=== PATIENT | male | born 1965 | race Caucasian/White ===

== ENCOUNTER 2022-06-16 03:44 | Inpatient (IN) | payer OTHER ==
[2022-06-16] VITALS (7 sets, daily range): BP systolic 105–125; BP diastolic 60–69
[~2022-06-16] VITALS: Ht 180.3 cm; Wt 88.5 kg
[2022-06-16] MEDS ORDERED: ONDANSETRON 4 MG/2 ML VIAL ONE (03:48)
--- NOTE | 2022-06-16 03:55 | NUR ---
BIB diabetes nurse from home with syncopal episode, patient is alert and oriented x4, pale in color, no s/s of respiratory distress. 1 liter of normal infusing from field, medicated as per order with 4mg of zofran IVat this time. MD at bedside for exam. patient informed of plan of care. Siderails up, will continue to monitor.
[2022-06-16] MEDS ORDERED: ASPIRIN 81 MG TAB.CHEW ONE (03:59)
[2022-06-16] MEDS ORDERED: ONDANSETRON 4 MG/2 ML VIAL IV ONE (04:00)
[2022-06-16] MEDS ORDERED: ASPIRIN 81 MG TAB.CHEW PO ONE (04:00)
[2022-06-16] MEDS ORDERED: IV NORMAL SALINE 1000 ML BAG IV ONE (04:00)
--- NOTE | 2022-06-16 04:10 | NUR ---
Xray at bedside.
[2022-06-16] MEDS ORDERED: ESCI5TAB PO (04:12)
[2022-06-16] MEDS ORDERED: ATOR80TA PO (04:12)
[2022-06-16] MEDS ORDERED: FAMO20TA8 PO (04:12)
[2022-06-16] MEDS ORDERED: FENO48TA6 PO (04:12)
[2022-06-16] MEDS ORDERED: TICA60TA PO (04:12)
[2022-06-16] MEDS ORDERED: ASPI81TA31 PO (04:12)
[2022-06-16] MEDS ORDERED: NITR0.4T SL (04:12)
[2022-06-16] MEDS ORDERED: NIAC500T2 PO (04:12)
[2022-06-16] MEDS ORDERED: ALBU8.5H8 IH (04:12)
[2022-06-16] MEDS ORDERED: ALEN70TA80 PO (04:12)
[2022-06-16] MEDS ORDERED: ZOLP10TA2 PO (04:12)
[2022-06-16 04:23] LABS: HEMATOCRIT 37.8 % (36.7-47.1); MEAN CORPUSCULAR HEMOGLOBIN 30.4 uug (23.8-33.4); MEAN CORPUSCULAR VOLUME 90.9 fL (73.0-96.2); PLATELET COUNT (AUTO) 229 K/uL (152-348)
[2022-06-16 04:29] LABS: CARBON DIOXIDE 28 mmol/L (21-32); CHLORIDE 104 mmol/L (98-107); CREATININE 1.1 mg/dL (0.6-1.3); GLUCOSE 129 mg/dL (74-106); POTASSIUM 3.1 mmol/L (3.5-5.1); UREA NITROGEN, BLOOD 11 mg/dL (7-18)
[2022-06-16 04:41] LABS: ALANINE AMINOTRANSFERASE 31 U/L (16-63); ALKALINE PHOSPHATASE 74 U/L (50-136); ASPARTATE AMINOTRANSFERASE 26 U/L (15-37); BILIRUBIN,DIRECT 0.3 mg/dL (0.0-0.2); BILIRUBIN,TOTAL 0.9 mg/dL (0.2-1.0); TOTAL PROTEIN, SERUM 7.2 g/dL (6.4-8.2)
[2022-06-16] MEDS ORDERED: POTASSIUM CHLORIDE 20 MEQ TAB.PRT.SR ONE (04:41)
[2022-06-16] MEDS ORDERED: POTASSIUM CHLORIDE 20 MEQ TAB.PRT.SR PO ONE (04:45)
[2022-06-16] MEDS ORDERED: NITROGLYCERIN 0.4 MG/TAB BOTTLE SL PRN (05:00)
[2022-06-16] MEDS ORDERED: ALBUTEROL SULFATE 8 GM HFA.AER.AD IH PRN (05:00)
[2022-06-16] MEDS ORDERED: ALENDRONATE SODIUM 70 MG TABLET PO SCH (05:00)
--- NOTE | 2022-06-16 05:02 | NUR ---
Family at bedside, aware patient getting admitted to the hospital, awaiting room assignment.
[2022-06-16] MEDS ORDERED: hydrALAZINE HCL 20 MG/1 ML VIAL IV PRN (05:15)
[2022-06-16] MEDS ORDERED: ACETAMINOPHEN 325 MG TABLET PO PRN (05:15)
[2022-06-16] MEDS ORDERED: MORPHINE SULFATE 2 MG/1 ML DISP.SYRIN IVP PRN (05:15)
[2022-06-16] MEDS ORDERED: IV NS 1000 ML 1,000 ML IV SCH (05:15)
[2022-06-16] MEDS ORDERED: ONDANSETRON 4 MG/2 ML VIAL IV PRN (05:15)
--- NOTE | 2022-06-16 06:04 | NUR ---
Patient ambulated to bathroom with and back to bed. IVF infusing as per order, no voiced c/o pain or discomfort.
--- NOTE | 2022-06-16 06:50 | NUR ---
Report given to accepting nurse Milly, patient remais stable for transport.
[2022-06-16] MEDS ORDERED: IV NS 1000 ML 1,000 ML IV PRN (08:26)
[2022-06-16] MEDS ORDERED: ALBUTEROL SULFATE 2.5 MG/3 ML NEBU NEB PRN (08:30)
[2022-06-16] MEDS ORDERED: HEPARIN SODIUM,PORCINE 5,000 UNITS/ML VIAL SQ SCH (09:00)
[2022-06-16] MEDS ORDERED: Medication Not On Formulary EA (Escitalopram Oxalate (Lexapro) 5 MG) PO SCH (09:00)
[2022-06-16] MEDS: ASPIRIN 81 MG TAB.CHEW PO SCH (09:51)
[2022-06-16] MEDS: DOCUSATE SODIUM 100 MG CAPSULE PO SCH ×2 (09:51→16:39)
[2022-06-16] MEDS: FAMOTIDINE 20 MG TABLET PO SCH (09:51)
[2022-06-16] MEDS: ESCITALOPRAM OXALATE 10 MG TABLET PO SCH (09:54)
[2022-06-16] MEDS: TICAGRELOR 60 MG TABLET PO SCH ×2 (11:25→16:39)
[2022-06-16] MEDS: FENOFIBRATE NANOCRYSTALLIZED 48 MG TABLET PO SCH (11:26)
--- NOTE | 2022-06-16 19:44 | NUR ---
RECEIVED REPORT FROM ISAAC HARRIS SHIFT CHARGE VIA PAPER REPORT. PATIENT ARRIVED ON THE UNIT AT 08:30AM. PATIENT IS ALERT & ORIENTED X4 AND SPEAKS ZAMBIAN. VITAL SIGNS STABLE. PATIENT VOIDS ADEQUATELY & HAD 1 BOWEL MOVEMENT. PATIENT DENIES PAIN & CHEST PAIN. PATIENT TOLERATES PO MEDICATIONS & DIET WELL. NO ACUTE DISTRESS NOTED. FALL PRECAUTIONS OBSERVED, INCLUDING BUT NOT LIMITED TO BED ALARM ON AND BED IN LOWEST POSITION. ALL NEEDS MET AT THIS TIME. ENDORSED CARE TO ISAAC SHANKAR SHIFT RN.
[2022-06-16] MEDS ORDERED: ATORVASTATIN 40 MG TABLET PO SCH (21:00)
[2022-06-16] MEDS ORDERED: Medication Not On Formulary EA (Atorvastatin Calcium (Lipitor) 80 MG) PO SCH (21:00)
[2022-06-17 07:22] LABS: HEMATOCRIT 35.9 % (36.7-47.1); MEAN CORPUSCULAR HEMOGLOBIN 31.1 uug (23.8-33.4); MEAN CORPUSCULAR VOLUME 89.9 fL (73.0-96.2); PLATELET COUNT (AUTO) 217 K/uL (152-348)
[2022-06-17 07:53] LABS: BILIRUBIN,TOTAL 1.1 mg/dL (0.2-1.0); CREATININE 1.1 mg/dL (0.6-1.3); PHOSPHOROUS 3.4 mg/dL (2.5-4.9); POTASSIUM 3.7 mmol/L (3.5-5.1); TOTAL PROTEIN, SERUM 6.8 g/dL (6.4-8.2)
[2022-06-17 08:04] VITALS: BP 124/65
[2022-06-17] MEDS: ESCITALOPRAM OXALATE 10 MG TABLET PO SCH (08:55)
[2022-06-17] MEDS: TICAGRELOR 60 MG TABLET PO SCH (08:55)
[2022-06-17] MEDS: ASPIRIN 81 MG TAB.CHEW PO SCH (08:55)
[2022-06-17] MEDS: DOCUSATE SODIUM 100 MG CAPSULE PO SCH (08:55)
[2022-06-17] MEDS: FAMOTIDINE 20 MG TABLET PO SCH (08:56)
[2022-06-17] MEDS: FENOFIBRATE NANOCRYSTALLIZED 48 MG TABLET PO SCH (08:57)
[2022-06-17 11:30] VITALS: BP 137/78
--- NOTE | 2022-06-17 14:20 | NUR ---
PATIENT DISCHARGED TO HOME. ALERT AND ABLE TO MAKE NEEDS KNOWN. DENIES DIZZINESS. DENIES PAIN. PATIENT ON ROOM AIR. AMBULATE WITHOUT DEVICE OR ASSISTANCE, GAIT STEADY. REMOVED IV FROM JARRELL, NO BLEEDING NOTED. DISCHARGE INSTRUCTIONS GIVEN TO PATENT AND . PATIENT TO MAKE FOLLOW UP APPOINTMENT WITH PCP AND SAFE AND [facility] INST[facility]ER. PATIENT DEPARTED AT 1420 WITH . REFUSED W/C TO ACCESS CAR, PATIENT AMBULATED DOWNSTAIRS WITH . FAST FOOD COOK ENCOURAGED PATIENT TO GET IN A SITTING POSITION AND REST BEFORE GETTING INTO A STANDING POSITION. VOICED UNDERSTANDING. PATIENT INSTRUCTED TO CALL 911 OR COME TOED FOR AND CHEST PAIN OR SOB DUE TO HX OF STENTS PLACEMENT. ENCOURAGED TO CONTINUE TAKING DAILY ASPIRIN ORDERED BY MD . VOICED UNDERSTANDING. JARED Veloz RN, BSN
== END 2022-06-17 14:20 | disposition home or self-care (01) | DRG 312 ==
LOC: ER 03:49 → TELE 07:59
DX: R55 Syncope and collapse (principal); E87.6 Hypokalemia; E78.5 Hyperlipidemia, unspecified; I25.2 Old myocardial infarction; I25.10 Atherosclerotic heart disease of native coronary artery without angina pectoris; J45.909 Unspecified asthma, uncomplicated; Z88.0 Allergy status to penicillin; Z95.5 Presence of coronary angioplasty implant and graft; K27.9 Peptic ulcer, site unspecified, unspecified as acute or chronic, without hemorrhage or perforation
CPT/HCPCS: 36415; 71045; 83735; 84100; 84484; 85025; 93005; 93307; A4663; G0378; J2405; J7040